=== PATIENT | female | born 1965 | race Caucasian/White ===

== ENCOUNTER 2017-11-24 18:54 | Emergency (ER) | payer BC ==
--- NOTE | 2017-11-24 19:44 | RAD ---
HISTORY: Left hand pain, injury COMPARISONS: None VIEWS: 4, Frontal, lateral, and oblique views of the left hand FINDINGS: BONE DENSITY: Normal. BONES: There is no displaced fracture. JOINTS: There is no arthropathy. ALIGNMENT: There is no dislocation. SOFT TISSUES: Unremarkable. OTHER FINDINGS: None. IMPRESSION: NO ACUTE OSSEOUS INJURY. IF SYMPTOMS PERSIST, RECOMMEND REPEAT IMAGING.
--- OUTSIDE RECORDS SUMMARY | 2017-11-24 19:55 | XMS REPORT ---
:1965 External Reference #:[id number] Author Organization [facility] Address [address] [place] [phone] Phone [phone] Care Team Providers Name Role Phone Denny Guzman M.D. Primary Care Physician Unavailable Payers Type Date Identification Numbers Payment Provider Subscriber Commercial Expires: Policy Number: [employer]/BS Megan Stedge 2010 [id number] [facility] PayID: [id number] [address] [address] ELIGIO Almaraz [address] Medigap Part B Effective: Policy Number: VYS [employer]/BS Megan Stedge 2010 [id number] [facility] Expires: 2011 PayID: [id number] [address] [address] ELIGIO Almaraz [address] Medigap Part B Effective: Policy Number: [employer]/BS Megan Stedge 2011 [id number] [facility] Expires: 2014 PayID: [id number] [address] [address] ELIGIO Almaraz [address] Medigap Part B Policy Number: [id number] [employer]/BS [facility] PayID: [id number] [address] [address] ELIGIO Almaraz [address] Problems Date Description Provider Status Onset: 07/20/2012 Female climacteric state Rina Dasilva MD Active Family History Date Family Member(s) Problem(s) Comments Father Diabetes Father due to Congestive Heart Failure () Father Heart Disease Father Hypertension Father Thyroid Father Mental Illness Mother Diabetes Mother Hypertension Mother Thyroid Mother blood clots in legs and lungs Mother WA at age 52 Mother Heart Disease Mother Obesity Mother Dementia Number of Children 1 First Son A&W Number of Siblings Siblings: 4 First Brother Heart Disease First Brother Hypertension Second Brother Back Surgery Second Brother Hypertension First Sister Hypertension First Sister Thyroid First Sister Brain Tumor First Sister Kidney Disease Second Sister scleraderma Paternal Grandfather due to Heart Disease () Paternal Grandmother due to Emphysema () Maternal Grandfather due to Heart Disease () Maternal Grandmother due to Heart Disease () Social History Type Date Description Comments Education Highest level of education completed is 2 years of college Marital Status Patient is Living Situation Lives with spouse Diet Diet is healthy and well balanced 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 Cigarette Use Never smoked cigarettes Alcohol Does not currently consume alcohol Smoking Patient has never smoked Drug Use Never used drugs Daily Caffeine Does not consume caffeine Exercise Type/Frequency Current Exercises sporadically Seat Belt/Car Seat Always uses a seat belt Currently Active The patient is currently sexually active Contraceptive Methods Current methods of control used include vasectomy STD's No STD history Allergies, Adverse Reactions, Alerts Date Description Reaction Status Severity Comments 07/05/2008 Morphine active Medications Medication Date Status Form Strength Qnty SIG Indications Ordering Provider Albuterol Active Unknown Sulfate 000 Levothyroxine Active Unknown Sodium 000 Miralax Active Unknown 000 Premarin Hx Cream 0.625mg/GM 1Tube use 1g by Martin 015 - way of MD Maame vagina 017 every night at bedtime x 2 wks then twice weekly Premarin Hx Cream 0.625mg/GM 1Tube use qhs x 2 Dave A. 013 - wks then Gelber, twice M.D. 014 weekly Estrace Hx Cream 0.1mg/GM 42.5un insert one Unknown 000 - its gram vaginally 013 three times a week Vital Signs Date Vital Result Comment 11/02/2017 BP Systolic 122 mmHg BP Diastolic 72 mmHg Height 63.75 inches 5'3.75" Weight 201.00 lb BMI (Body Mass Index) 34.8 kg/m2 Last Menstrual Period [id number] 1 Parity 1 09/10/2016 BP Systolic 124 mmHg BP Diastolic 78 mmHg Height 63.75 inches 5'3.75" Weight 193.00 lb BMI (Body Mass Index) 33.4 kg/m2 Last Menstrual Period 4640493 1 Parity 1 09/03/2015 BP Systolic 118 mmHg BP Diastolic 68 mmHg Height 63.75 inches 5'3.75" Weight 196.00 lb BMI (Body Mass Index) 33.9 kg/m2 Last Menstrual Period 1757260 1 Parity 1 08/26/2014 BP Systolic 124 mmHg BP Diastolic 82 mmHg Height 63.75 inches 5'3.75" Weight 194.00 lb BMI (Body Mass Index) 33.6 kg/m2 Last Menstrual Period [id number] 1 Parity 1 08/24/2013 BP Systolic 116 mmHg BP Diastolic 72 mmHg Height 63.75 inches 5'3.75" Weight 190.00 lb BMI (Body Mass Index) 32.9 kg/m2 1 Parity 1 07/20/2012 BP Systolic 122 mmHg BP Diastolic 82 mmHg Height 63.75 inches 5'3.75" Weight 193.00 lb BMI (Body Mass Index) 33.4 kg/m2 1 Parity 1 05/27/2011 BP Systolic 124 mmHg BP Diastolic 84 mmHg Height 64 inches 5'4" Weight 196.00 lb BMI (Body Mass Index) 33.6 kg/m2 1 Parity 1 03/05/2011 BP Systolic 132 mmHg BP Diastolic 86 mmHg Height 64 inches 5'4" Weight 197.00 lb BMI (Body Mass Index) 33.8 kg/m2 Last Menstrual Period 0 2008 1 Parity 1 10/09/2009 BP Systolic 120 mmHg BP Diastolic 70 mmHg Height 64 inches 5'4" Weight 194.00 lb BMI (Body Mass Index) 33.3 kg/m2 Last Menstrual Period 0 09/2008 1 Parity 1 07/05/2008 BP Systolic 118 mmHg BP Diastolic 80 mmHg Height 64 inches 5'4" Weight 192.00 lb BMI (Body Mass Index) 33.0 kg/m2 Last Menstrual Period 5415984 1 Parity 1 03/25/2006 BP Systolic 138 mmHg BP Diastolic 88 mmHg Height 64 inches 5'4" Weight 191.00 lb BMI (Body Mass Index) 32.8 kg/m2 Last Menstrual Period 5747950 1 Parity 1 Results Test Date Test Result H/L Range Note Pap Plus HPV 08/24/2013 [facility] HPV HR- 1 Laboratory test finding 03/05/2011 Cytology 2 <SEE NOTE> Laboratory test finding 10/09/2009 Cytology 3 <SEE NOTE> Lipid Profile 07/15/2008 Triglyceride 86 mg/dL 40-200 (Trig/Chol/HDL) Cholesterol 210 mg/dL High Less Than 200 4 High Density Lipoprotein 45 mg/dL 40-60 5 Cholesterol/HDL Ratio 4.67 AVERAGE High 1-4.44 Low Density Lipoprotein 148 mg/dL High Less Than 100 6 Laboratory test 07/15/2008 TSH 3.15 MIU/ML 0.34-5.60 finding Lipid And Glucose 07/15/2008 Glucose 90 mg/dL 70-100 7 Laboratory test 07/05/2008 Cytology 8 finding <SEE NOTE> Laboratory test 03/31/2007 Cytology 9 finding <SEE NOTE> Laboratory test 04/05/2006 TSH 3.45 MIU/ML 0.34-5.60 finding Lipid Profile 04/05/2006 Cholesterol 217 mg/dL High Less Than 200 10 (Trig/Chol/HDL) Triglyceride 108 mg/dL 40-200 High Density Lipoprotein 41 mg/dL 40-60 Low Density Lipoprotein 154 mg/dL High Less Than 100 11 Cholesterol/HDL Ratio 5.29 AVERAGE High 1-4.44 Lipid And Glucose 04/05/2006 Glucose 89 mg/dL 70-105 Laboratory test finding 03/28/2006 Cytology 12 <SEE NOTE> Lipid Profile 02/17/2005 Cholesterol 207 mg/dL High Less Than 200 13 (Trig/Chol/HDL) Triglyceride 74 mg/dL 40-200 High Density Lipoprotein 46 mg/dL 40-60 Low Density Lipoprotein 146 mg/dL High Less Than 100 14 Cholesterol/HDL Ratio 4.50 AVERAGE High 1-4.44 Lipid And Glucose 02/17/2005 Glucose 89 mg/dL 70-105 Laboratory test finding 11/06/2003 Carcino Embryonic Antigen 0.4 NG/ML 0- 5 15 CA 125 (Ovarian Cancer Ag) 20.6 U/ML 2.0-35.0 16 BHCG Quantitative < 2.1 MIU/ML 0-5 17 Alphafetoprotein Tumor Marker 2.9 NG/ML <6.0 18 1 Cytology Laboratory [address] [place] [address], [address] [place] [address] CYTOLOGY REPORT Name: Megan Nelson : 1965 (Age: 47) Sex: F Location: [facility] Med. Rec. # [id number] Date Collected: 08/24/2013 Billing #: [id number] Date Received: 08/24/2013 Requisition # [id number] Physician(s): KASSANDRA ZALDIVAR Source of Specimen: ENDOCERVICAL/ECTOCERVICAL THIN PREP Clinical Information: Date of Last Menstrual Period: 09/13 Hormonal History: Estrogen cream Specimen Adequacy: SATISFACTORY FOR EVALUATION. NO ENDOCERVICAL/TRANSFORMATION ZONE. General Categorization: NEGATIVE FOR INTRAEPITHELIAL LESION OR MALIGNANCY. tfn Electronic Signature GAYLE Elias (ASCP) Reported: 08/30/2013 [facility] HPV High Risk Date Ordered: 08/27/2013 Status: Signed Out Date Reported: 08/28/2013 High Risk NEGATIVE (HPV types 16, 18, 31, 33, 35, 39, 45, 51, 52, 56, 58, 59, 66, 68) Cervista HPV HR Electronic Signature Viviana Middleton [place] [facility] ICD-9 Code(s) V76.2 2 --- RUN DATE: 03/09/11 [facility] NMI LIVE PAGE 1 RUN TIME: 1407 Specimen Inquiry RUN USER: INTERFACE -- Name: MEGAN NELSON Status: REG REF Re03/05/11 Age/Sex: 45/F Unit#: [id number] Location: [facility] : 61 -- Specimen: [id number] [id number] Spec Date: 03/05/[address]: Jami Barba COTTON GINNER HELPER Spec Type: CYTOLOGY Received: 03/09/11 Copies to: SOURCE ECTOCERVICAL/ENDOCERVICAL Thin Prep with Reflex HPV Test PATIENT INFORMATION ACTUAL COLLECTION DATE: 03/05/11 POST MENOPAUSAL? Yes DATE OF PRIOR SPECIMEN: 10/09/09 PATIENT HISTORY: Last menstrual period 2008 ADEQUACY OF SPECIMEN Satisfactory for evaluation * Transformation zone component identified * DIAGNOSIS NEGATIVE FOR INTRAEPITHELIAL LESION OR MALIGNANCY * This Pap test was evaluated with the assistance of the ThinPrep Pap Test Imaging System. The Pap Smear is a screening test designed to aid in the detection of premalign ant and malignant conditions of the uterine cervix. It is not a diagnostic procedure a nd should not be used as the sole means of detecting cervical cancer. Both false- positiv e and false-negative reports do occur. Depending on your risk status, a Pap smear saranya uld be obtained and evaluated every one to three years. Initial evaluation performed by Alice HUMPHREYS([facility]) 03/09/11 Final Interpretation electronically signed by: Alice HUMPHREYS([facility]) 03/09/11 1403 -- -- DEPARTMENT OF PATHOLOGY, [address] [place] [address] [facility] Permit #[id number] Daja Guerrero M.D. Sheet Folder Dir cole -- 3 --- RUN DATE: 10/10/09 [facility] NMI LIVE PAGE 1 RUN TIME: 828 Specimen Inquiry RUN USER: INTERFACE -- Name: BLESSING NELSONDakota Estevez Status: REG REF Re10/09/09 Age/Sex: 44/F Unit#: [id number] Location: [facility]. : 61 -- Specimen: [id number] Spec Date: 10/09/[address] [facility] [address]: Jami Barba mp [employer] GINNER HELPER Spec Type: CYTOLOGY Received: 10/09/09-1455 Copies to: SOURCE ECTOCERVICAL/ENDOCERVICAL Thin Prep with Reflex HPV Test PATIENT INFORMATION ACTUAL COLLECTION DATE: 10/09/09 DATE OF PRIOR SPECIMEN: 07/05/08 PATIENT HISTORY: Last menstrual period 09/2008 ADEQUACY OF SPECIMEN Satisfactory for evaluation * Transformation zone component identified * DIAGNOSIS NEGATIVE FOR INTRAEPITHELIAL LESION OR MALIGNANCY * This Pap test was evaluated with the assistance of the ThinPrep Pap Test Imaging System. The Pap Smear is a screening test designed to aid in the detection of premalign ant and malignant conditions of the uterine cervix. It is not a diagnostic procedure a nd should not be used as the sole means of detecting cervical cancer. Both false- positiv e and false-negative reports do occur. Depending on your risk status, a Pap smear saranya uld be obtained and evaluated every one to three years. Final Interpretation electronically signed by: Kirsten ESCOBAR([facility]) 10/10/09 082 8 -- -- DEPARTMENT OF PATHOLOGY, [address] [place] [address] [facility] Permit #[id number] Daja Guerrero M.D. Sheet Folder Dir cole -- 4 CHOLESTEROL INTERPRETATION: Desirable: Less than 200 MG/DL Borderline-High Risk: 200-239 MG/DL High-Risk: 240 MG/DL and over 5 HDL INTERPRETATION: Undesirable: High Risk: Less than 40 MG/DL Desirable: Low Risk: Greater than 60 MG/DL 6 LDL INTERPRETATION: Low Risk Optimal Level: LDL Less than 100 MG/DL Near or Above Optimal: LDL 100-129 MG/DL Borderline High Risk: LDL 130-159 MG/DL High Risk: LDL 160-189 MG/DL Very High Risk: LDL Greater than 189 MG/DL 7 Note change in reference range as of 04/25/08. The change was based on recommendations from the [place] [employer]. 8 --- RUN DATE: 07/08/08 [facility] NMI LIVE PAGE 1 RUN TIME: 1500 Specimen Inquiry RUN USER: INTERFACE -- Name: MEGAN NELSON Herb Status: REG REF Re07/05/08 Age/Sex: 42/F Unit#: [id number] Location: [facility] : 61 -- Specimen: [id number] SOUT Spec Date: 07/05/[address]: Dakota lewis Jr, MD Spec Type: CYTOLOGY Received: 07/08/08-1203 Copies to: SOURCE ECTOCERVICAL/ENDOCERVICAL Thin Prep with Reflex HPV Test PATIENT INFORMATION ACTUAL COLLECTION DATE: 07/05/08 LAST MENSTRUAL PERIOD: 06/19/08 DATE OF PRIOR SPECIMEN: 03/31/07 ADEQUACY OF SPECIMEN Satisfactory for evaluation * Transformation zone component identified * DIAGNOSIS NEGATIVE FOR INTRAEPITHELIAL LESION OR MALIGNANCY * Reactive cellular changes associated with * Inflammation (includes typical repair) * This Pap test was evaluated with the assistance of the GetPricePrep Pap Test Imaging System. Due to cytologic findings at the cash control specialist microscope, comprehensive manual rescreening by a Infrastructure Developer was required. The Pap Smear is a screening test designed to aid in the detection of premalign ant and malignant conditions of the uterine cervix. It is not a diagnostic procedure a nd should not be used as the sole means of detecting cervical cancer. Both false- positive and false-negative reports do occur. Depending on your risk status, a Pap smear saranya uld be obtained and evaluated every one to three years. Initial evaluation performed by Alice HUMPHREYS([facility]) 07/08/08 Final Interpretation electronically signed by: CATA LLAMAS 07/08/08 1500 -- DEPARTMENT OF PATHOLOGY, [address] [place] [address] [facility] Permit #[id number] Melo Welsh M.D. Director of Laboratories -- 9 --- RUN DATE: 04/05/07 [facility] NMI LIVE PAGE 1 RUN TIME: 1413 Specimen Inquiry RUN USER: INTERFACE [id number] MEGAN NELSON 41/F <REG REF 03/30> ([id number]) RSP Dakota Quintana Jr, MD -- Specimen: [id number] SOUT Spec Date: 03/30/[address]: Dakota lewis Jr, MD Spec Type: CYTOLOGY Received: 04/03/07-1505 Copies to: SOURCE ECTOCERVICAL/ENDOCERVICAL Thin Prep with Reflex HPV Test PATIENT INFORMATION ACTUAL COLLECTION DATE: 03/30/07 PREVIOUS ABNORMAL PAP SMEARS No LAST MENSTRUAL PERIOD: 03/24/07 PATIENT HISTORY: Prior 2005 ADEQUACY OF SPECIMEN Satisfactory for evaluation * Transformation zone component identified * DIAGNOSIS NEGATIVE FOR INTRAEPITHELIAL LESION OR MALIGNANCY * This Pap test was evaluated with the assistance of the GetPricePrep Pap Test Imaging System. The Pap Smear is a screening test designed to aid in the detection of premalign ant and malignant conditions of the uterine cervix. It is not a diagnostic procedure a nd should not be used as the sole means of detecting cervical cancer. Both false- positive and false-negative reports do occur. Depending on your risk status, a Pap smear saranya uld be obtained and evaluated every one to three years. Final Interpretation electronically signed by: Alice HUMPHREYS([facility]) 04/05/07 1412 -- -- DEPARTMENT OF PATHOLOGY, [address] [place] [address] [facility] Permit #[id number] Ford Evans II, M.D. Director Daja Guerreroctjackie -- 10 Classification: Borderline High . 11 CALCULATED LDL APPROXIMATES THE VALUE OF A DIRECT LDL MEASUREMENT. Classification: Borderline High . 12 ---- RUN DATE: 04/04/06 [facility] NMI TEST PAGE 1 RUN TIME: 921 Specimen Inquiry RUN USER: INTERFACE [id number] MEGAN NELSON 40/F <REG REF 03/25> ([id number]) Rahul Wagner MD. -- Specimen: [id number] SOUT Spec Date: 03/25/[address]: Rahul Quintana Jr., MD. Spec Type: CYTOLOGY Received: 03/31/06-1134 Copies to: SOURCE ECTOCERVICAL/ENDOCERVICAL Thin Prep with Reflex HPV Test PATIENT INFORMATION ACTUAL COLLECTION DATE: 03/25/06 PREVIOUS ABNORMAL PAP SMEARS No LAST MENSTRUAL PERIOD: 03/08/06 DATE OF PRIOR SPECIMEN: 02/17/05 PREVIOUS CYTOLOGY/SURGICAL SPECIMEN #: [id number] ADEQUACY OF SPECIMEN Satisfactory for evaluation * Transformation zone component identified * DIAGNOSIS NEGATIVE FOR INTRAEPITHELIAL LESION OR MALIGNANCY * The Pap Smear is a screening test designed to aid in the detection of premalign ant and malignant conditions of the uterine cervix. It is not a diagnostic procedure an d should not be used as the sole means of detecting cervical cancer. Both false-positive and false-negative reports do occur. Depending on your risk status, a Pap smear saranya uld be obtained and evaluated every one to three years. Signed Alice HUMPHREYS([facility]) 04/04/06 -- -- DEPARTMENT OF PATHOLOGY, [address] [place] [address] [facility] Permit #[id number] Ford Evans II, M.D. Director Melo Welsh M.D. Sheet Folder Kirsten crandallctor -- 13 Classification: Borderline High . 14 CALCULATED LDL APPROXIMATES THE VALUE OF A DIRECT LDL MEASUREMENT. Classification: Borderline High . 15 SMOKING MAY INCREASE VALUES SERUM LEVELS OF CEA MEASURED USING THE SREEKANTH ELSA ACCESS IMMUNOASSAY SYSTEM SHOULD NOT BE INTERPRETED ABSOLUTE EVIDENCE OF THE PRESENCE OR ABSENCE OF DISEASE. THE CEA VALUE SHOULD BE USED IN CONJUNCTION WITH OTHER PERTINENT CLINICAL DIAGNOSTIC PROCEDURES. 16 The CA 125 assay is not recommended as a cancer screening test, but rather as an aid in monitoring response to therapy for patients with epithelial ovarian cancer. Serial testing for patients CA 125 assay values should be used in conjunction with other methods used for screening ovarian cancer. . 17 * MALES: < 5.0 MIU/ML NON FEMALES < 5.0 MIU/ML APPROX GESTATIONAL AGE APPROX HCG RANGE 0-1 WEEK < 5.0-50 1-2 WEEKS 50-500 2-3 WEEKS 100-5000 3-4 WEEKS 500-10,000 1-2 MONTHS 10,000-200,000 2-3 MONTHS 15,000-100,000 PLEASE NOTE: The intended use of this assay is the quantitative determination of HCG in human serum or plasma for the early detection of . These assays should not be used to diagnose any condition unrelated to . If an HCG level is inconsistent with, or unsupported by, clinical evidence, results should be confirmed by an alternate HCG method. . 18 ASSAY BY MICROPARTICLE ENZYME IMMUNOASSAY ON THE PathgatherTE 2000. VALUES OBTAINED WITH DIFFERENT METHODS OR KITS CANNOT BE USED INTERCHANGEABLY FOR PATIENT MONITORING. RESULTS CANNOT BE INTERPRETED ABSOLUTE EVIDENCE OF THE PRESENCE OR ABSENCE OF MALIGNANCY. THE TEST IS NOT INTERPRETABLE IN . TEST PERFORMED BY: [facility] [address] [place] [id number] CLIA #[id number] Procedures Date CPT Code Description Status Comment 10/13/2016 Mammogram Completed 11/30/2013 Colonoscopy Completed rep 10 yrs 05/27/2011 55354 Echography Transvaginal Completed 03/27/2004 21700 Injection Subcutaneous Or Intramuscular Completed 01/24/2004 20877 Injection Subcutaneous Or Intramuscular Completed 01/02/2004 56315 Laparoscopy,Destruct Of Lesions Completed 01/02/2004 93403 Laparoscopy,Destruct Of Lesions Completed Encounters Type Date Location Provider CPT E/M Dx Office Visit 09/10/2016 3:00p [place] [address] Z01.411 N39.3 Office Visit 09/03/2015 3:00p [place] [address] N95.1 Z01.411 N39.3 N95.2 Office Visit 08/26/2014 11:00a [place] [address] V72.31 627.2 627.3 V76.19 564.09 625.6 V76.2 Office Visit 08/24/2013 10:00a [facility] Yara Schumacher JALYN 44859 V72.31 V76.2 627.2 Office Visit 07/20/2012 8:00a [place] [address] V72.31 611.79 V76.2 789.9 627.2 Office Visit 05/27/2011 11:20a [facility] Jami Wild, ANP-C 20663 789.04 Office Visit 03/05/2011 8:00a [facility] Jami Wild ANP-C 62608 V72.31 V76.2 789.9 Office Visit 10/09/2009 8:00a [facility] Jami Wild ANP-C 77244 V72.31 V76.2 627.3 627.2 Office Visit 07/05/2008 3:40p [facility] Rahul Quintana JR., M.D. 66082 V72.31 V76.2 Office Visit 03/30/2007 1:40p [facility] Rahul Quintana JR., M.D. 42692 V72.31 V76.2 Office Visit 03/25/2006 3:40p [facility] Rahul Quintana JR., M.D. 38475 V72.31 V76.2 617.9 Office Visit 02/17/2005 8:00a [facility] Office Rahul Quintana JR., M.D. 61824 V72.31 V18.0 V17.4 Office Visit 09/30/2004 8:00a [facility] Rahul Quintana JR., M.D. 36147 617.9 Office Visit 06/30/2004 8:00a [facility] Rahul Quintana JR., M.D. 93771 617.9 Office Visit 02/26/2004 8:00a [facility] Rahul Quintana JR., M.D. 24019 617.0 Office Visit 11/05/2003 2:20p [facility] Rahul Quintana JR., M.D. 86286 620.2 626.8 Plan of Care 05/27/2011 - COSMO Corea-C789.04 Pain Abdominal Left Lower QuadrantFollow up:Followup:. (Follow up)
--- OUTSIDE RECORDS SUMMARY | 2017-11-24 19:55 | XMS REPORT ---
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 Hematocrit (a/CMC/CTX) 43.2 % 36.1 - 50.3 Platelets 255 10^3/ul 150-400 Lymph% 39.6 % 17.0-48.0 Mixed% 5.8 Neutrophils % 54.6 Mean Corpuscular Vol 91 82.2-97.4 Mean Corpuscular Hemoglobin 30.7 27.6-33.3 Mean Corpuscular Hemo Concen 33.8 32.0-36.0 RDW 13.3 11.6-13.7 Mean Platelet Volume 6.3 5.5-11.0 Ua - Micro ([facility]) 04/30/2015 Appearance CLEAR Color YELLOW Glucose, Urine ([facility]/CMC/CTX) NEG Bilirubin NEG Ketones NEG SP Grav 1.015 Blood NEG PH 8.5 Protein NEG Urobil 0.2 Nitrite NEG Leukocytes (a/CMC/Centrex) MOD Hyaline - /Lpf Granular - /Lpf WBC (a,Centrex) 15-20 RBC 0-2 Mucus - /Lpf Epith RARE /Lpf Bacteria 4+ /Hpf Amorphous - /Lpf Crystals, Fluid (Fma/CMC/CTX) - Z#Comments - Urine Culture Routine 04/30/2015 Urine Culture, Routine Final report 11 , 12 Result 1 See Comment: 11, 13 Antimicrobial Susceptibility See Comment: 11, 14 Influenza A&B-[facility] 09/26/2014 Influenza A NEGATIVE Influenza B POSITIVE Laboratory test finding 02/15/2014 TSH 1.35 mIU/L 0.50-6.00 Free T4 1.13 ng/dL 0.75-1.54 Basic Metabolic Profile 02/15/2014 Sodium 140 mEq/L 134-149 Potassium 4.1 mEq/L 3.6-5.5 Chloride 107 mEq/L 94-112 Carbon Dioxide 25 mEq/L 21-32 Glucose 86 mg/dL 70-105 BUN 17 mg/dL 6-26 Creatinine 1.0 mg/dL 0.6-1.4 BUN/Creat Ratio 17.0 CALC 8.0-36.0 Calcium 9.2 mg/dL 8.6-10.2 Laboratory test finding 02/15/2014 Magnesium, Serum 2.1 mEq/L 1.2-2.1 Laboratory test finding 01/08/2014 TSH 4.19 mIU/L 0.50-6.00 Free T4 0.89 ng/dL 0.75-1.54 Ua - Micro (a) 01/08/2014 Appearance CLEAR Color YELLOW Glucose, Urine (Fma/CMC/CTX) NEG Bilirubin NEG Ketones NEG SP Grav 1.010 Blood TRACE-INTACT PH 6.5 Protein NEG Urobil 0.2 Nitrite NEG Leukocytes (Fma/CMC/Centrex) MODERATE Hyaline - /Lpf Granular - /Lpf WBC (Fma,Centrex) 25-30 RBC 8-10 Mucus (Fma/CBC/Centrex) - /Lpf Epith FEW /Lpf Bacteria TRACE /Hpf Amorphous (Fma/CMC/Centrex) - /Lpf Crystals, Fluid (Fma/CMC/CTX) - Z#Comments - Complete Blood Count 11/02/2013 WBC 4.8 x10^3/UL 3.6-9.6 RBC 4.34 x10^6/UL 3.90-5.70 HGB 13.0 g/dL 12.1-17.2 HCT 39 % 36-50 MCV 90.0 fL 82.2-97.4 MCH 29.9 pg 27.6-33.3 MCHC 33.4 g/dL 33.0-35.5 RDW 11.8 % 11.6-13.7 PLT 250 x10^3/UL 150-400 MPV 7.1 fL Low 7.4-10.4 Gran # 2.7 x10^3/UL 1.5-7.2 Lymph# 1.9 x10^3/UL 0.7-4.9 [place]# 0.2 x10^3/UL 0.1-0.9 Gran % 54.3 % 42.2-75.2 Lymph % 39.7 % 20.5-51.1 [place]% 6.0 % 1.7-9.3 Comprehensive Metabolic Prof 11/02/2013 Sodium 141 mEq/L 134-149 Potassium 4.4 mEq/L 3.6-5.5 Chloride 98 mEq/L 94-112 Carbon Dioxide 30 mEq/L 21-32 Glucose 98 mg/dL 70-105 BUN 13 mg/dL 6-26 Creatinine 1.0 mg/dL 0.6-1.4 BUN/Creat Ratio 13.0 CALC 8.0-36.0 Calcium 9.5 mg/dL 8.6-10.2 Total Protein 6.8 g/dL 6.3-8.1 Albumin 4.4 g/dL 3.8-5.5 Globulin 2.4 g/dL 2.0-4.8 A/G Ratio 1.8 CALC 0.6-2.3 Alk. Phosphatase 96 U/L 30-110 Alt (SGPT) 17 U/L 7-35 Ast (Sgot) 21 U/L 5-34 Total Bilirubin 0.4 mg/dL 0.2-1.3 Laboratory test finding 11/02/2013 Free T4 0.96 ng/dL 0.75-1.54 15 TSH 6.08 mIU/L High 0.50-6.00 16 Lipid Profile 11/02/2013 Cholesterol 208 mg/dL High 120-200 Triglycerides 66 mg/dL 30-200 HDL Cholesterol 50 mg/dL 30-85 LDL (Calculated) 145 CALC High 0-129 VLDL Cholesterol 13 mg/dL 0-50 HDL Risk Factor 4.2 CALC 0.0-4.4 Ua - Micro (a) 10/26/2013 Appearance CLEAR Color YELLOW Glucose, Urine (Fma/CMC/CTX) NEG Bilirubin NEG Ketones NEG SP Grav 1.025 Blood NEG PH 5.5 Protein NEG Urobil 0.2 Nitrite NEG Leukocytes (Fma/CMC/Centrex) MODERATE Hyaline - /Lpf Granular - /Lpf WBC (Fma,Centrex) 22-25 RBC 3-5 Mucus (Fma/CBC/Centrex) - /Lpf Epith FEW /Lpf Bacteria TRACE /Hpf Amorphous (Fma/CMC/Centrex) - /Lpf Crystals, Fluid (a/CMC/CTX) - Z#Comments - Comprehensive Metabolic Prof 02/08/2011 Albumin 4.4 g/dL 3.8-5.5 Alk. Phos. 87 U/L 30-110 Alt (SGPT) 19 U/L 7-35 Ast (Sgot) 25 U/L 5-34 BUN 20 mg/dL 6-26 Calcium 9.1 mg/dL 8.6-10.2 Chloride 100 mEq/L 94-112 Creatinine 0.8 mg/dL 0.6-1.4 Carbon Dioxide 26 mEq/L 21-32 Glucose 103 mg/dL 70-105 Sodium 138 mEq/L 134-149 Total Bilirubin 0.5 mg/dL 0.2-1.3 Total Protein 6.6 g/dL 6.3-8.1 Potassium 4.1 mEq/L 3.6-5.5 Globulin 2.2 g/dL 2.0-4.8 A/G Ratio 2.0 Calc 0.6-2.2 BUN/Creat Ratio 23.9 Calc 8.0-36.0 Laboratory test finding 02/08/2011 TSH 4.26 mIU/L 0.50-6.00 Free T4 0.75 ng/dL 0.75-1.54 CBC Electronic ([facility]) 02/08/2011 WBC 5.4 3.6-9.6 RBC 4.46 3.90-5.70 Hemoglobin (Fma/CMC/CTX) 13.7 g/dL 12.1 - 17.2 Hematocrit (a/CMC/CTX) 39.9 % 36.1 - 50.3 Platelets 249 10^3/ul 150-400 Lymph% 37.9 20.5-51.1 Mixed% 8.8 Neutrophils % 53.3 Mean Corpuscular Vol 89 82.2-97.4 Mean Corpuscular Hemoglobin 30.8 27.6-33.3 Mean Corpuscular Hemo Concen 34.4 32.0-36.0 RDW 12.3 11.6-13.7 Mean Platelet Volume 7.9 6.5-11.0 Lipid Profile 02/08/2011 Cholesterol 196 mg/dL 120-200 HDL 47 mg/dL 30-85 Triglycerides 53 mg/dL 30-200 HDL Risk Factor 4.2 CALC High 0.0-4.0 LDL (Calculated) 139 CALC High 0-129 VLDL (Calculated) 11 mg/dL 0-50 Laboratory test finding 12/12/2009 Free T4 0.82 ng/dL 0.75-1.54 TSH 2.99 mIU/L 0.50-6.00 Ua - Non Micro ([facility]) 12/12/2009 Appearance CLEAR Color YELLOW Glucose, Urine (Fma/CMC/CTX) NEG Bilirubin NEG Ketones NEG SP Grav 1.010 Blood NEG PH 7.0 Protein NEG Urobil 0.2 Nitrite NEG Leukocytes (a[place]rex) NEG Comprehensive Metabolic Prof 12/12/2009 Albumin 4.6 g/dL 3.8-5.5 Alk. Phos. 96 U/L 30-110 Alt (SGPT) 20 U/L 7-35 Ast (Sgot) 26 U/L 5-34 BUN 14 mg/dL 6-26 Calcium 9.0 mg/dL 8.6-10.2 Chloride 100 mEq/L 94-112 Creatinine 0.8 mg/dL 0.6-1.4 Carbon Dioxide 27 mEq/L 21-32 Glucose 93 mg/dL 70-105 Sodium 140 mEq/L 134-149 Total Bilirubin 0.3 mg/dL 0.2-1.3 Total Protein 7.3 g/dL 6.3-8.1 Potassium 4.0 mEq/L 3.6-5.5 Globulin 2.7 g/dL 2.0-4.8 A/G Ratio 1.7 Calc 0.6-2.2 BUN/Creat Ratio 18.0 Calc 8.0-36.0 Lipid Profile 12/12/2009 Cholesterol 234 mg/dL High 120-200 HDL 51 mg/dL 30-85 Triglycerides 96 mg/dL 30-200 HDL Risk Factor 4.5 CALC 4.2-7.0 LDL (Calculated) 163 CALC High 0-129 VLDL (Calculated) 19 mg/dL 0-50 Lipid Profile (Trig/Chol/HDL) 07/15/2008 Triglyceride 86 mg/dL 40-200 Cholesterol 210 mg/dL High Less Than 200 17 High Density Lipoprotein 45 mg/dL 40-60 18 Cholesterol/HDL Ratio 4.67 AVERAGE High 1-4.44 Low Density Lipoprotein 148 mg/dL High Less Than 100 19 Laboratory test finding 07/15/2008 Glucose 90 mg/dL 70-100 20 TSH 3.15 MIU/ML 0.34-5.60 Laboratory test finding 01/03/2007 Urine Culture (Fma/CMC) NEGATIVE Ua - Micro ([facility]) 12/23/2006 Appearance CLEAR Color YELLOW Glucose NEG Bilirubin NEG Ketones NEG SP Grav >=1.030 Blood NEG LMP 11/30/06 PH 5.0 Protein, Random Urine NEG Urobil 0.2 Nitrite NEG Leukocytes (Fma/CMC/Centrex) NEG Hyaline - /Lpf Granular - /Lpf WBC (a,Centrex) 10-12 RBC, Fluid - Mucus SM AMT /Lpf Epith OCC /Lpf Bacteria 1+ /Hpf Amorphous - /Lpf Crystals, Urine (Fma/CMC/CTX) - /Lpf Misc - Ua - Micro ([facility]) 09/04/2005 Appearance CLEAR Color WILIAN Glucose NEG Bilirubin NEG Ketones NEG SP Grav 1.010 Blood NEG LMP 08/24/05 PH 7.5 Protein NEG g/dL Urobil 0.2 Nitrite POSITIVE Leukocytes NEG Hyaline - /Lpf Granular - /Lpf WBC 6-8 RBC - Mucus - /Lpf Epith RARE /Lpf Bacteria 1+ /Hpf Amorphous - /Lpf Crystals - /Lpf Z#Comments - Laboratory test finding 01/03/2004 Anisocytosis SLIGHT CBC W/ Manual Diff [place] 01/03/2004 WBC 14.1 CUMM High 4.8-10.8 RBC 3.67 CUMM Low 4.2-5.4 Hemoglobin (Fma/CMC/CTX) 11.1 g/dL Low 12.0-16.0 Hematocrit (Fma/CMC/CTX) 32 % Low 35-47 Mean Corpuscular Vol 88 UM3 79-97 Mean Corpuscular Hemaglobin 30 pg 27-31 Mean Corpuscular Hemo Concen 35 g/dL 32-36 RDW 13 10.5-15 Platelets 234 CUMM 150-450 Mean Platelet Volume 7.3 Low 7.4-10.[address] [facility] 69 38-83 Band - 0-[address] [facility] 28 5-47 Monocytes 1 % 0-13 Eosinophils 1 0-6 Atypical Lymph - 0-6 Morphology - Basophils 1 Ua - Micro ([facility]) 10/16/2003 Appearance CLEAR Color YELLOW Glucose, Urine (a/CMC/CTX) NEGATIVE Bilirubin NEGATIVE Ketones NEGATIVE SP Grav 1.010 Blood NEGATIVE LMP 3WKS Ago PH 6.5 Protein NEGATIVE Urobil 0.2 Nitrite NEGATIVE Leukocytes (a/CMC/Centrex) NEGATIVE Hyaline - /Lpf Granular - /Lpf WBC'S 0-1 RBC'S 1-3 Mucus (Fma/CBC/Centrex) - /Lpf Epith - Bacteria - Amorphous (Fma/CMC/Centrex) - /Lpf Crystals, Urine (Fma/CMC/CTX) - /Lpf Comments - CBC Electronic ([facility]) 10/16/2003 WBC 8.8 3.6-9.6 Lymphocytes 37.5 % 20.5 - 51.1 Monocytes 5.6 % 1.7-9.3 Granulocytes 56.9 % 42.2 - 75.2 Lymphocytes 3.3 10^3/uL 0.7 - 4.9 Monocytes 0.5 10^3/uL 0.1 - 0.9 Granulocytes 5.0 10^3/uL 1.5 - 7.2 RBC 4.36 3.90-5.70 Hemoglobin (Fma/CMC/CTX) 12.5 g/dL 12.1 - 17.2 Hematocrit (Fma/CMC/CTX) 38.4 % 36.1 - 50.3 Mean Corpuscular Vol 88.1 82.2-97.4 Mean Corpuscular Hemaglobin 28.7 27.6-33.3 Mean Corpuscular Hemo Concen 32.6 Low 33.0-35.5 RDW 13.3 11.6-13.7 Platelets 328. 10^3/ul 150-400 Mean Platelet Volume 7.0 Low 7.4-10.4 Laboratory test finding 10/16/2003 Sed Rate (a/CMC/Centrex) 32 Ua - Micro ([facility]) 06/11/2003 Appearance CLEAR YELLOW Glucose NEGATIVE Bilirubin NEGATIVE Ketones NEGATIVE SP Grav <=1.005 Blood TRACE-LYSED LMP 3WKS Ago PH 5.5 Protein NEGATIVE Urobil 0.2 Nitrite NEGATIVE Leukocytes 1+ Hyaline - /Lpf Granular - /Lpf WBC'S >30 RBC'S 0-1 Mucus + /Lpf Epith FEW Bacteria 2+ Amorphous - /Lpf Crystals - /Lpf Comments TAKING Pyridium Ua - Non Micro ([facility]) 09/28/2002 Appearance CLEAR YELLOW Glucose NEGATIVE Bilirubin NEGATIVE Ketones NEGATIVE SP Grav >=1.030 Blood NEGATIVE PH 5.5 Protein NEGATIVE Urobil 0.2 Nitrite NEGATIVE Leukocytes NEGATIVE Laboratory test finding 09/28/2002 Comments LMP: 09-17-02` Ua - Micro ([facility]) 09/19/2002 Appearance CLOUDY DK YELLOW Glucose NEGATIVE Bilirubin NEGATIVE Ketones NEGATIVE SP Grav >=1.030 Blood 3+ PH 5.0 Protein SSA POSITIVE +1 Urobil 0.2 Nitrite POSITIVE Leukocytes 2+ Hyaline - /Lpf Granular - /Lpf WBC'S >100 RBC'S 3-5 Mucus - /Lpf Epith FEW Bacteria 4+ Amorphous - /Lpf Crystals - /Lpf Comments LMP: 09-03-02 Ua - Non Micro ([facility]) 03/03/2002 Appearance CLEAR DK ORANGE Glucose TRACE Bilirubin NEG Ketones NEG SP Grav <=1.005 Blood TRACE-LYSED PH 6.5 Protein 1+ Urobil 1.0 Nitrite POS Leukocytes 1+ Ua - Micro ([facility]) 10/26/2001 Appearance CLOUDY LT YELLOW Glucose NEGATIVE Bilirubin NEGATIVE Ketones NEGATIVE SP Grav >=1.030 Blood MODERATE PH 6.0 Protein 100 MG Urobil 0.2 Nitrite POSITIVE Leukocytes MODERATE Hyaline - /Lpf Granular - /Lpf WBC'S >100 RBC'S >50 Mucus + /Lpf Epith FEW Bacteria 2-3+ Amorphous - /Lpf Crystals - /Lpf Comments - Ua - Micro ([facility]) 06/24/2000 Appearance CLOUDY YELLOW Glucose - Bilirubin - Ketones - SP Grav >=1.030 Blood TRACE-LYSED PH 5.0 Protein TRACE Urobil 0.2 Nitrite POSITIVE Leukocytes MODERATE Hyaline - /Lpf Granular - /Lpf WBC'S TNTC RBC'S - Mucus - /Lpf Epith RARE Bacteria 4+ Amorphous - /Lpf Crystals - /Lpf Comp Metabolic ([facility]) 01/06/2000 Albumin 4.0 GM/DL 3.80 - 5.50 Alkaline Phosphatase 58 U/L 39-130 Bilirubin, Total 0.4 mg/dL 0.2-1.3 BUN 11 mg/dL 10-26 Calcium 8.2 mg/dL 7.4-9.2 Creatinine 0.9 mg/dL 0.6-1.4 Glucose 90 mg/dL 70 - 118 Ast Sgot 20 U/L 9-44 Alt (SGPT) 10 U/L 0-28 Total Protein 6.7 g/dL 6.3-8.1 Sodium 142 mEq/L 134-149 Potassium 4.8 mEq/L 3.6-5.5 Chloride 106 mEq/L 94-112 Co2 30 21-32 Globulin 2.7 2.0-4.8 Albumin / Globulin Ratio 1.5 0.6-2.2 BUN/Creatinin Ratio 12.2 8.0-36 Lipid Profile ([facility]) 01/06/2000 Cholesterol 168 mg/dL 140-200 Triglyceride 86 mg/dL 30-150 HDL-Chol 39.8 mg/dL 30-70 VLDL 17 mg/dL 0-50 LDL-Calculated 111 0-160 Laboratory test finding 01/06/2000 Free T4 8.58 pg/mL 7.0-15.5 TSH 2.15 uIU/ML 0.4-4.2 Ua - Micro ([facility]) 11/06/1999 Appearance HAZY YELLOW SP Grav 1.025 Esterase SMALL 1+ Nitrite - pH 5.5 Protein - Glucose - Ketones - Urobil - Bilirubin + Blood TRACE, NON-HEMO. Hyaline - /Lpf Granular - /Lpf WBC'S 10-20, -----> Some Clumps RBC'S - Mucus - /Lpf Epith RARE Bacteria 1-2+ Amorphous - /Lpf Crystals - /Lpf 1 SRC:urine 1 pierson urine tub e 2 Source of Specimen: urine 1 pierson urine tub 3 Escherichia coli Source of Specimen: urine 1 pierson urine tub 50,000-100,000 colony forming units per mL Cefazolin <=4 ug/mL Cefazolin with an MIGUEL <=16 predicts susceptibility to the oral agents cefaclor, cefdinir, cefpodoxime, cefprozil, cefuroxime, cephalexin, and loracarbef when used for therapy of uncomplicated urinary tract infections due to E. coli, Klebsiella pneumoniae, and Proteus mirabilis. 4 Source of Specimen: urine 1 pierson urine tub S=Susceptible; I=Intermediate; R=Resistant P=Positive; N=Negative MICS are expressed in micrograms per mL Antibiotic RSLT#1 RSLT#2 RSLT#3 RSLT#4 Amoxicillin/Clavulanic Acid I Ampicillin R Cefepime S Ceftriaxone S Cefuroxime S Cephalothin I Ciprofloxacin S Ertapenem S Gentamicin S Imipenem S Levofloxacin S Nitrofurantoin S Piperacillin R Tetracycline S Tobramycin S Trimethoprim/Sulfa R 5 SRC:<Blank> 1URINE VACUTAI NER 6 Source of Specimen: <Blank> 1URINE VACUTAI 7 Escherichia coli Source of Specimen: <Blank> 1URINE VACUTAI 25,000-50,000 colony forming units per mL 8 Source of Specimen: <Blank> 1URINE VACUTAI S=Susceptible; I=Intermediate; R=Resistant P=Positive; N=Negative MICS are expressed in micrograms per mL Antibiotic RSLT#1 RSLT#2 RSLT#3 RSLT#4 Amoxicillin/Clavulanic Acid S Ampicillin S Cefepime S Ceftriaxone S Cefuroxime S Cephalothin S Ciprofloxacin S Ertapenem S Gentamicin S Imipenem S Levofloxacin S Nitrofurantoin S Piperacillin S Tetracycline S Tobramycin S Trimethoprim/Sulfa S 9 CHROMOGENIC INTERFERENCE 10 RESULTS VERIFIED BY REPEAT ANALYSIS 11 SRC:<Blank> 1CS VACUTAINER 12 Source of Specimen: <Blank> 1CS VACUTAINER 13 Source of Specimen: <Blank> 1CS VACUTAINER Proteus mirabilis/penneri Greater than 100,000 colony forming units per mL 14 Source of Specimen: <Blank> 1CS VACUTAINER S=Susceptible; I=Intermediate; R=Resistant P=Positive; N=Negative MICS are expressed in micrograms per mL Antibiotic RSLT#1 RSLT#2 RSLT#3 RSLT#4 Amoxicillin/Clavulanic Acid S Ampicillin S Cefepime S Ceftriaxone S Cefuroxime S Cephalothin S Ciprofloxacin S Ertapenem S Gentamicin S Levofloxacin S Nitrofurantoin R Piperacillin S Tetracycline R Tobramycin S Trimethoprim/Sulfa S 15 FASTING 16 RESULTS VERIFIED BY REPEAT ANALYSIS 17 CHOLESTEROL INTERPRETATION: Desirable: Less than 200 MG/DL Borderline-High Risk: 200-239 MG/DL High-Risk: 240 MG/DL and over 18 HDL INTERPRETATION: Undesirable: High Risk: Less than 40 MG/DL Desirable: Low Risk: Greater than 60 MG/DL 19 LDL INTERPRETATION: Low Risk Optimal Level: LDL Less than 100 MG/DL Near or Above Optimal: LDL 100-129 MG/DL Borderline High Risk: LDL 130-159 MG/DL High Risk: LDL 160-189 MG/DL Very High Risk: LDL Greater than 189 MG/DL 20 Note change in reference range as of 04/25/08. The change was based on recommendations from the [place] [employer]. Procedures Date CPT Code Description Status 11/10/2017 Mammogram Completed 10/19/2016 96373 Vision Test- screening test of visual acuity, Completed quantitative, bila 10/13/2016 Mammogram Completed 10/02/2015 73447 Vision Test- screening test of visual acuity, Completed quantitative, bila 09/30/2015 Mammogram Completed 09/09/2014 Mammogram Completed 02/15/2014 35824 Electrocardiogram Complete Completed 11/30/2013 Colonoscopy Completed 10/26/2013 61268 Vision Test- screening test of visual acuity, Completed quantitative, bila 09/03/2013 Mammogram Completed 08/17/2012 Mammogram Completed 01/26/2011 88194 Electrocardiogram Complete Completed 10/09/2009 Mammogram Completed Encounters Type Date Location Provider CPT E/M Dx Office Visit 10/27/2017 3:20p [facility] Denny Guzman M.D. 08509 Z00.00 E03.8 K58.9 M54.5 J30.2 M79.672 Office Visit 06/16/2017 8:30a [facility] [place] [address] N39.0 R30.0 B35.3 Office Visit 02/24/2017 10:10a [facility] Denny Guzman M.D. 60975 N39.0 Office Visit 02/01/2017 3:00p [facility] Pennie Garcia, GHADA 86726 R30.0 R05 Office Visit 12/25/2016 9:40a Main Office Filomena Baum M.D. 05902 M79.661 Office Visit 10/19/2016 12:00p Main Office Denny Guzman M.D. 85080 Z00.00 E03.8 K58.9 J45.998 Office Visit 01/17/2016 9:45a Main Office Henry Roberts 26082 J06.9 R05 Office Visit 10/02/2015 3:20p [facility] Denny Guzman M.D. 13767 Z00.00 E03.8 K58.9 R00.2 Z23 Office Visit 04/30/2015 10:15a [place] [address] 599.0 Office Visit 09/26/2014 8:15a [place] [address] 461.0 487.8 Office Visit 02/15/2014 4:10p Main Office Denny Guzman M.D. 10702 785.1 244.9 782.1 Office Visit 01/22/2014 4:00p [facility] Henry Roberts 45677 910.4 E906.4 Office Visit 01/08/2014 5:10p Main Office Denny Guzman M.D. 56097 244.9 564.1 789.04 Office Visit 12/11/2013 5:00p [facility] Office Denny Guzman M.D. 64548 564.1 244.9 Office Visit 10/26/2013 3:20p Main Office Denny Guzman M.D. 73847 V70.0 789.02 564.00 780.79 V72.0 Office Visit 01/08/2013 2:10p [facility] Office Denny Guzman M.D. 79206 945.20 E899 Office Visit 01/13/2012 8:40a Main Office Josie Yuan M.D. 11577 E906.4 911.4 Office Visit 06/22/2011 1:15p [facility] Henry Roberts 41960 726.32 Office Visit 02/17/2011 3:40p Main Office Zhanna Jones M.D. 49464 785.1 Office Visit 01/26/2011 4:00p Main Office Zhanna Jones M.D. 44657 785.1 Office Visit 08/05/2010 9:20a [facility] Ravindra Hanna M.D. 37995 461.8 Office Visit 03/10/2010 3:30p Main Office Pennie degroot Diana 74202 461.8 MJ CarlosDJ Carlos Office Visit 12/12/2009 10:20a Main Office Denny Guzman M.D. 96046 272.4 564.00 780.79 V70.0 Office Visit 12/23/2006 4:00p Main Office Erasmo Orr M.D. 75494 599.0 272.4 Office Visit 09/04/2005 10:30a Main Office Colin Jolly-C 32663 599.0 Office Visit 08/03/2004 1:15p Main Office GHADA Sarmiento 93865 493.90 Office Visit 04/06/2004 10:20a Main Office Polo Ramsay M.D. 47859 989.5 Office Visit 10/16/2003 3:00p Main Office Polo Ramsay M.D. 03395 789.00 Office Visit 06/11/2003 2:45p Main Office Saavedranp-C 57436 599.0 Office Visit 09/28/2002 11:00a Main Office Nadja LuisMaharajnp-C 66065 V72.3 Office Visit 09/19/2002 1:45p Main Office Colin Roberts-C 83791 599.0 Office Visit 08/14/2002 4:15p [facility] Colin Roberts-C 61302 465.9 Office Visit 03/03/2002 10:40a Main Office Polo Ramsay M.D. 40180 Office Visit 10/31/2001 7:30p Main Office Saavedranp-C 44475 Office Visit 10/26/2001 6:00p Main Office Colin Jolly-Freddie 81703 Office Visit 04/10/2001 9:40a Main Office Denny Guzman M.D. 51527 Office Visit 06/24/2000 1:00p Main Office Denny Guzman M.D. 69117 Office Visit 05/20/2000 1:40p [facility] Denny Guzman M.D. 73536 Plan of Care 11/18/2017 - Rosanne Cleary, NPN39.0 Urinary tract infection, site not specifiedNew Medication:Nitrofurantoin Monohyd Macro 100 mgNew Labs:Ua - Micro ( [facility])Urine Culture & SensitivityComments:finish medication, drink plenty of fluids, call if symptoms don't improve, you develop fever >100.4, vomiting or symptoms worsenReviewed adverse side effects of medication. Advised to call the office if experiencing symptoms. Patient verbalized understanding.AllComments:~B_~U_Medication Management~b_~u_ Patient Understands medications she's taking? Yes No Are there Barriers to Adherence? Yes No Has the patient been asked about herbal supplements and therapies, and OTC meds? Yes No ~B_~U_Care Plan~b_~u_1. Patient has been queried about patient's goals/preferences and functional/lifestyle goals at relevant visits. If relevant, describe: na2. Treatment goals as explained to the patient: above3. Are there barriers to meeting treatment goals? Yes No If Yes, please describe:4. Self-Management goals as described to the patient: Yes NoFollow up:As always, we strongly encourage a healthy diet and making physical activity a part of your every day life. If you have questions about how or where to start, please contact the office.
--- NOTE | 2017-11-24 20:18 | ED ---
Upper Extremity Pain - HPI Summary HPI Summary: 52-year-old female presents with left hand injury today. She states she tripped and landed on her left hand. She states she is pain over her left pinky and ring finger. She states the area feels stiff. She hasn't taking anything for pain. There is no bruising to the area. She is right-handed. She denies any previous injury to the area. She denies any head injury. She states all was mechanical. She denies any other injury. She denies any wrist pain. - History of Current Complaint Chief Complaint: EDExtremityUpper Stated Complaint: LT HAND INJURY Time Seen by Provider: 11/24/17 19:29 - Allergies/Home Medications Allergies/Adverse Reactions: Allergies Allergy/AdvReac Type Severity Reaction Status Date / Time morphine Allergy Vomiting Verified 11/24/17 19:22 PMH/Surg Hx/FS Hx/Imm Hx Endocrine/Hematology History: Reports: Hx Thyroid Disease Denies: Hx Diabetes Cardiovascular History: Denies: Hx Congestive Heart Failure, Hx Hypertension GI History: Reports: Other GI Disorders - IBS - Cancer History Hx Chemotherapy: No Hx Radiation Therapy: No - Surgical History Surgery Procedure, Year, and Place: cyst on ovary. Infectious Disease History: No Infectious Disease History: Denies: History Other Infectious Disease, Traveled Outside the [place] in Last 30 Days - Family History Known Family History: Positive: Cardiac Disease, Diabetes Family History: FHx of Thyroid Disease - Social History Alcohol Use: None Substance Use Type: Reports: None Smoking Status (MU): Never Smoked Tobacco Review of Systems Negative: Fever Negative: Chest Pain Negative: Shortness Of Breath Positive: Myalgia - left hand pain All Other Systems Reviewed And Are Negative: Yes Physical Exam Triage Information Reviewed: Yes Vital Signs On Initial Exam: Initial Vitals Temp Pulse Resp BP Pulse Ox 97.9 F 78 16 166/94 99 11/24/17 19:20 11/24/17 19:20 11/24/17 19:20 11/24/17 19:20 11/24/17 19:20 Vital Signs Reviewed: Yes Appearance: Positive: Well-Appearing Skin: Positive: Warm, Dry Head/Face: Positive: Normal Head/Face Inspection Eyes: Positive: Normal, Conjunctiva Clear Respiratory/Lung Sounds: Positive: Clear to Auscultation, Breath Sounds Present Cardiovascular: Positive: Normal, RRR Musculoskeletal: Positive: Strength/ROM Intact - left hand, Other - Negative snuffbox tenderness, tenderness over left pinky and ring metacarpal, capillary refill less than 2 seconds, good pulses, Neurological: Positive: Normal Psychiatric: Positive: Normal Diagnostics - Vital Signs Vital Signs Temp Pulse Resp BP Pulse Ox 11/24/17 19:20 97.9 F 78 16 166/94 99 - Laboratory Lab Statement: Any lab studies that have been ordered have been reviewed, and results considered in the medical decision making process. - Radiology hand Xray Interpretation: No Acute Changes Radiology Interpretation Completed By: Radiologist Course/Dx - Course Course Of Treatment: 52-year-old female presents with left hand injury today. She states she tripped and landed on her left hand. She states she is pain over her left pinky and ring finger. She states the area feels stiff. She hasn 't taking anything for pain. There is no bruising to the area. She is right- handed. She denies any previous injury to the area. She denies any head injury. She states all was mechanical. She denies any other injury. She denies any wrist pain. On exam no snuffbox tenderness. Neurovascularly intact. Tenderness over pinky and ring finger metacarpals. X-ray normal. We will treat as contusion with rice. Patient understands and agrees plan. - Diagnoses Differential Diagnosis/HQI/PQRI: Positive: Fracture (Closed), Strain, Sprain Provider Diagnoses: Left hand pain Discharge - Sign-Out/Discharge Documenting (check all that apply): Discharge - Discharge Plan Condition: Good Disposition: HOME Patient Education Materials: Hand Sprain (ED) Referrals: Denny Guzman MD [Primary Care Provider] - Additional Instructions: Take Tylenol or ibuprofen every 6 hours as needed for pain Apply ice, rest, elevate Follow up with primary care physician within 5 days Return to ED if develop any new or worsening symptoms - Billing Disposition and Condition Condition: GOOD Disposition: HOME
[2017-11-24 20:41] VITALS: BP 164/92
== END 2017-11-24 20:40 | disposition home or self-care (01) ==
LOC: ED 18:54
DX: S69.92XA Unspecified injury of left wrist, hand and finger(s), initial encounter (principal); W01.0XXA Fall on same level from slipping, tripping and stumbling without subsequent striking against object, initial encounter; Y92.9 Unspecified place or not applicable
CPT/HCPCS: 99281